=== PATIENT | female | born 1965 | race African-American/Black ===

== ENCOUNTER 2024-12-22 23:35 | Emergency (ER) | payer OTHER ==
[~2024-12-22] VITALS: Ht 160 cm; Wt 62.0 kg
[2024-12-22 23:50] VITALS: BP 126/78; PULSE 78; RESP 18; TEMP 36.8; O2SAT 98
== END 2024-12-23 07:36 | disposition left against medical advice (07) ==
LOC: ER 23:35
DX: R10.13 Epigastric pain (principal); R05.9 Cough, unspecified
CPT/HCPCS: 71045; 99283